=== PATIENT | female | born 2000 | race Caucasian/White ===

== ENCOUNTER 2019-07-30 13:25 | Emergency (ER) | payer OTHER ==
[~2019-07-30] VITALS: Ht 152.4 cm; Wt 60.3 kg
[2019-07-30 13:29] VITALS: Ht 152.4 cm; Wt 60.3 kg
[2019-07-30 14:02] LABS: PLATELET COUNT 293 x10^3mcL (130-400); RED CELL DISTRIBUTION WIDTH 11.8 % (11.5-14.5)
[2019-07-30 15:08] LABS: microscopic required? YES; urine erythrocyte 1+ (NEGATIVE)
[2019-07-30 15:44] VITALS: BP 119/76
== END 2019-07-30 15:44 | disposition home or self-care (01) ==
LOC: ED 13:25
PROVIDERS: Emergency Medicine
DX: O20.0 Threatened abortion (principal); R03.0 Elevated blood-pressure reading, without diagnosis of hypertension
CPT/HCPCS: 36415